=== PATIENT | male | born 1950 | race Caucasian/White ===

== ENCOUNTER → 2018-09-01 | Outpatient (CLI) | payer MEDICARE ==
[~2018-09-01] MED LIST: ASPI81TA45 PO; CARV6.2512 PO; OMEP20CA14 PO; PRAS10TA4 PO; REGADENOSON 0.4 MG/5 ML SYRINGE ONE; ROSU40TA PO; SENN8.6C2 PO; VALS1TAB24 PO
== END | disposition home or self-care (01) ==
LOC: CFH 08:30
PROVIDERS: ATTEND Internal Medicine Cardiovascular Disease
DX: R01.1 Cardiac murmur, unspecified (principal); I25.2 Old myocardial infarction
CPT/HCPCS: 78452; 93017; A9502; J2785

== ENCOUNTER 2019-02-28 07:53 | Outpatient (CLI) | payer MEDICARE ==
[~2019-02-28 07:53] MED LIST changes: -REGADENOSON 0.4 MG/5 ML SYRINGE ONE
== END 2019-02-28 23:59 | disposition home or self-care (01) ==
LOC: CVU 07:53
PROVIDERS: ATTEND Internal Medicine Cardiovascular Disease
DX: I65.23 Occlusion and stenosis of bilateral carotid arteries (principal); I08.3 Combined rheumatic disorders of mitral, aortic and tricuspid valves; I10 Essential (primary) hypertension; E78.5 Hyperlipidemia, unspecified; I25.2 Old myocardial infarction; Z87.891 Personal history of nicotine dependence
CPT/HCPCS: 0399T; 93306; 93880

== ENCOUNTER → 2019-09-06 | Outpatient (CLI) | payer MEDICARE ==
[~2019-09-06] MED LIST changes: +REGADENOSON 0.4 MG/5 ML SYRINGE ONE
== END | disposition home or self-care (01) ==
LOC: CFH 08:26
PROVIDERS: ATTEND Internal Medicine Cardiovascular Disease
CPT/HCPCS: 78452 ×2; 93017 ×2; A9502; J2785 ×2

== ENCOUNTER → 2020-03-12 | Outpatient (CLI) | payer MEDICARE ==
[~2020-03-12] MED LIST changes: -OMEP20CA14 PO; +OMEP20CA20 PO; -REGADENOSON 0.4 MG/5 ML SYRINGE ONE; -VALS1TAB24 PO; +VALS1TAB25 PO
== END | disposition home or self-care (01) ==
LOC: CFH 10:38
PROVIDERS: ATTEND Internal Medicine Cardiovascular Disease
DX: I06.0 Rheumatic aortic stenosis (principal)
CPT/HCPCS: 93306

== ENCOUNTER → 2020-09-09 | Outpatient (CLI) | payer MEDICARE | END | disposition home or self-care (01) | LOC: CFH 08:37 | PROVIDERS: ATTEND Internal Medicine Cardiovascular Disease | DX: I06.8 Other rheumatic aortic valve diseases (principal) | CPT/HCPCS: 93306 ==